=== PATIENT | male | born 1975 | race Caucasian/White ===

== ENCOUNTER 2017-12-21 11:50 | Inpatient (IN) | payer MEDICAID ==
[~2017-12-21] VITALS: Ht 180.3 cm; Wt 86.6 kg
[2017-12-21] VITALS (20 sets, daily range): BP systolic 88–151; BP diastolic 46–105; BMI 24.9
--- NOTE | ~2017-12-21 | EC ---
PATIENT:MITCHELL LANGFORD DATE OF SERVICE: 12/21/17 SEX: M MEDICAL RECORD: [id number] DATE OF : 75 LOCATION:[facility] D.230 AGE OF PATIENT: 42 ADMISSION DATE: 12/21/17 REFERRING PHYSICIAN: INTERPRETING PHYSICIAN: FAROOQ HARMON MD ECHOCARDIOGRAM REPORT ECHO CHARGES 4 ECHO COMPLETE Date: 12/23/17 CLINICAL DIAGNOSIS: CHF ECHOCARDIOGRAPHIC MEASUREMENTS (adult normal given) AC root (d.<3.7cm) 3.5 cm LV Septum d (<1.2 cm> 1.0 cm Valve Excursion 2.0 cm LV Septum (systole) 1.4 cm Left Atria (s.<4.0cm> 3.3 cm LVPW d(<1.2cm) 1.2 cm RV (d.<2.3cm) 2.7 cm LVPW (sytole) 1.8 cm LV diastole(<5.6CM) 5.2 cm MV E-F(>70mm/sec) cm LV systole 2.7 cm LVOT Diameter 2.1 cm MV exc.(>10mm) cm Est.ejection fraction (50-75%) % DOPPLER: LVIT cm/sec A 66.0 cm/sec E 87.0 cm/sec LA cm/sec RVSP 27.0 mmHg LVOT 138 cm/sec AOP1/2T m/s Asc. Ao 140 cm/sec RVOT 76.0 cm/sec RA cm/sec PA 108 cm/sec AV Gradient Peak 7.9 mmHg AV Mean 3.8 mmHg AV Area 2.8 cm MV Gradient Peak 5.1 mmHg MV Mean 1.9 mmHg MV Area cm COMMENTS: Hand Button Splitter: 1 SERENE JONES Tool Design Engineer: 2 Dr. Molina TAPE# PACS Pericardial Effusion N DATE OF SERVICE: FINDINGS: 1. Left ventricular chamber size is within normal limits. Left ventricular systolic function is normal. Overall ejection fraction is estimated at 65%. 2. Left atrium, right atrium, and right ventricle chamber sizes are within normal limit. 3. Valvular structures have normal structure and motion. 4. Doppler interrogation reveals only trace mitral regurgitation and mild tricuspid regurgitation. No other valvular insufficiency or stenosis. ECHOCARDIOGRAM REPORT [id number] MITCHELL LANGFORD Pulmonary systolic pressure is estimated at 27 mmHg. 5. No evidence of pericardial effusion or left ventricular thrombus. TRANSINT:[id number] Voice Confirmation ID: [id number] DOCUMENT ID: [id number] FAROOQ HARMON MD at 1823 CC: [id number] DICTATION DATE: 12/23/17 1633 SENIOR NATIONAL ACCOUNT MANAGER: 12/23/17 1708 ADM IN [facility] [address] [place] [address]
--- NOTE | ~2017-12-21 | CN ---
PATIENT NAME:MITCHELL PICKERING MEDICAL RECORD: [id number] : 75 LOCATION:D[facility]2204 ADMIT DATE: 12/21/17 ACCOUNT: [id number] CONSULTING PHYSICIAN: CHRISSY HUMMEL MD REFERRING PHYSICIAN: KATJA DAWN DO DATE OF CONSULTATION: 12/21/2017 CONSULT REQUESTING PHYSICIAN: Katja Dawn DO REASON FOR CONSULTATION: Status post pulmonary arrest, mechanical ventilation. HISTORY OF PRESENT ILLNESS: Mr. Pickering is a 42-year-old prisoner. Now, he is orally intubated, unresponsive. The history was taken mainly by reviewing the patient's note and talking to Dr. Dawn and talking to the ER doctor. The patient was [facility] the field at the [facility]. The patient came to the nursing station at the [facility] that he is not breathing and he collapsed and code blue was called and the patient was intubated and resuscitated and brought into the ER. On arrival to the people, the patient was severely dyspneic and he has a peak airway pressure in the 70s and 80s, and he was bluish discoloration. PAST MEDICAL HISTORY: Significant for, 1. Asthma, COPD. 2. Seizure disorder. 3. Depression. 4. Chronic liver disease. The etiology is not clear. 5. Hypertension. MEDICATIONS: On [employer] is reviewed. He is on Xopenex and Advair inhaler at the [facility]. He is also on Dilantin and some prednisone. PERSONAL AND SOCIAL HISTORY: The patient is a prisoner. The detail is not obtainable. FAMILY HISTORY: Not obtainable. PHYSICAL EXAMINATION: GENERAL: Now, the patient is orally intubated. He is in respiratory distress and on mechanical ventilation. He is on assist control, tidal volume of 600, PEEP of 5, on 40% oxygen. His peak airway pressure was up to 90. HEENT: Conjunctivae are pink. Sclerae are not icteric. The pupils are 3-4 mm. NECK: The neck is supple, no JVD. CHEST: The chest excursion is minimal. There are prolonged expiration with wheezing. There is subcutaneous emphysema. HEART: Rhythm regular, normal sound, no murmur. ABDOMEN: The abdomen is soft, bowel sounds present. No hepatosplenomegaly. RECTAL: Deferred. EXTREMITIES: No cyanosis, no clubbing, no pedal edema. CENTRAL NERVOUS SYSTEM: The patient is unresponsive, does not respond to verbal stimuli. LABORATORY DATA: CBC: The WBC is 28.2, hemoglobin is 16.4, hematocrit 46.3, the platelet count is 352. Chemistry: Sodium 141, potassium 4.4, BUN is 11, creatinine 1.1. Lactic acid is 2.2. Total bilirubin is 0.24. AST 71, ALT is 64, alkaline phosphatase 136. ABG initially, the pH was 7.05, pCO2 was 105.9, pO2 is 567, bicarb is 29.8. CONSULT REPORT [id number] MITCHELL PICKERING IMAGING: CT of the head: There is no acute intracranial finding. CTA of the chest: There is no pulmonary embolism. There are patchy airspace disease in the lung bases. Trace pericardial effusion, ectatic ascending aorta. IMPRESSION: 1. Acute hypercapnic respiratory failure. 2. Respiratory arrest. 3. Respiratory acidosis secondary to #2. 4. Acute exacerbation of asthma, chronic obstructive pulmonary disease. 5. Acute mental status changes, rule out anoxic encephalopathy. 6. Leukocytosis. 7. Seizure disorder. 8. Mildly elevated LFTs. RECOMMENDATION: 1. Continue the mechanical ventilation, change it to SIMV and adjust the setting. Keep the peak airway pressure below 40. 2. Start on albuterol/ipratropium nebulizer. Start on Brovana and budesonide nebulizer. Start methylprednisolone IV. 3. Start empiric Zosyn. 4. Follow up labs and chest radiograph in the morning. 5. DVT and stress GI ulcer prevention. Discussed in length with Dr. Dawn as well as RN/RT. The critical care time is 50 minutes. If the patient is not waking up, we will repeat the CT scan of the head. TRANSINT:[id number] Voice Confirmation ID: [id number] DOCUMENT ID: [id number] CHRISSY HUMMEL MD at 1301 CC: [id number] DICTATION DATE: 12/21/171855 SUPERVISOR BEAM DEPARTMENT: 12/21/172101 DIS IN 12/30/17 [place] [address]
[2017-12-21] MEDS ORDERED: ADVAIR HFA 230-12 GM INH (11:58)
[2017-12-21] MEDS ORDERED: XOPENEX HFA15 GM INH (11:58)
[2017-12-21] MEDS ORDERED: PAXIL40 MG PO (11:59)
[2017-12-21] MEDS ORDERED: STERAPRED DS 1010 MG PO (11:59)
[2017-12-21] MEDS ORDERED: DILANTIN50 MG PO (11:59)
[2017-12-21] MEDS ORDERED: MUCINEX DM ER1 EAC1 PO (12:00)
[2017-12-21] MEDS ORDERED: RANITIDINE HCL150 M1 PO (12:00)
[2017-12-21 12:16] LABS: HEMATOCRIT 46.3 % (42.0-54.0); HEMOGLOBIN 16.4 g/dL (13.5-17.5); MCH 34.8 pg (26.0-34.0); MCHC 35.4 g/dL (31.0-37.0); MCV 98.3 fL (80.0-100.0); MEAN PLATELET VOLUME 10.1 fL (7.4-10.4); PLATELET COUNT 352 10x3/uL (130-400); RBC 4.71 10x6/uL (4.20-6.10); RDW 13.2 % (11.5-14.5); WBC 28.2 10x3/uL (4.8-10.8)
[2017-12-21 12:27] LABS: ALBUMIN 3.3 g/dL (3.4-5.0); ALKALINE PHOSPHATASE 136 U/L (46-116); ALT (SGPT) 64 U/L (10-68); BILIRUBIN - TOTAL 0.24 mg/dL (0.2-1.3); CALC OSMOLALITY 280 mosm/kg (275-300); CARBON DIOXIDE 25.5 mmol/L (21.0-32.0); CHLORIDE - SERUM 105 mmol/L (98-107); CREATININE - SERUM 1.1 mg/dL (0.6-1.3); GLUCOSE 125 mg/dL (74-106); POTASSIUM - SERUM 4.4 mmol/L (3.5-5.1); PROTEIN - SERUM 6.9 g/dL (6.4-8.2); SODIUM 141 mmol/L (136-145); UREA NITROGEN 11 mg/dL (7-18); eGFR NON AFRICAN AMERICAN 78 mL/min (90-120)
[2017-12-21 12:37] LABS: CKMB 2.6 U/L (0.0-3.6); CREATINE KINASE 209 UL (21-232); TROPONIN-I 0.043 ng/mL (0.000-0.060)
[2017-12-21 12:40] LABS: EOSINOPHILS 1 % (0-7); LYMPHOCYTES 11 % (15-50); MONOCYTES 3 % (2-11); NEUTROPHILS 83 % (40-80)
[2017-12-21 12:41] LABS: PLATELET ESTIMATE INCREASED; SMUDGE CELLS 1+
[2017-12-21 12:42] LABS: PLATELET MORPHOLOGY GIANT PLTS PRESENT
[2017-12-21 13:02] LABS: UDS - AMPHET NEGATIVE QUAL (NEGATIVE); UDS - BARB NEGATIVE QUAL (NEGATIVE); UDS - BENZO POSITIVE QUAL (NEGATIVE); UDS - COCAINE NEGATIVE QUAL (NEGATIVE); UDS - OPIATE NEGATIVE QUAL (NEGATIVE); UDS - PCP NEGATIVE QUAL (NEGATIVE); UDS - THC NEGATIVE QUAL (NEGATIVE)
[2017-12-21 13:09] LABS: APPEARANCE HAZY (CLEAR); COLOR STRAW (YELLOW)
[2017-12-21 13:10] LABS: BILIRUBIN NEGATIVE (NEGATIVE); EPITHELIAL CELLS 0-5 /hpf (0-5); GLUCOSE NEGATIVE (NEGATIVE); KETONE NEGATIVE (NEGATIVE); NITRITE NEGATIVE (NEGATIVE); PROTEIN 1+ mg/dL (NEGATIVE); UROBILINOGEN NORMAL (NORMAL)
[2017-12-21 13:11] LABS: AMORPHOUS SEDIMENT <1+ /lpf (NONE SEEN); BACTERIA FEW /hpf (NONE SEEN); MUCUS <1+ /lpf (NONE SEEN)
[2017-12-22] VITALS (25 sets, daily range): BP systolic 83–105; BP diastolic 52–65
[2017-12-22 04:45] LABS: BASOPHILS 0 % (0-2); EOSINOPHILS 0 % (0-7); HEMATOCRIT 39.3 % (42.0-54.0); HEMOGLOBIN 13.9 g/dL (13.5-17.5); IMMATURE GRANULOCYTES 0.3 % (0-5); MCHC 35.4 g/dL (31.0-37.0); MCV 96.1 fL (80.0-100.0); MEAN PLATELET VOLUME 9.9 fL (7.4-10.4); MONOCYTES 9.6 % (2-11); NEUTROPHILS 84.1 % (40-80); PLATELET COUNT 279 10x3/uL (130-400); RBC 4.09 10x6/uL (4.20-6.10); RDW 13.1 % (11.5-14.5); WBC 22.6 10x3/uL (4.8-10.8)
[2017-12-22 05:03] LABS: ALBUMIN 2.6 g/dL (3.4-5.0); ALKALINE PHOSPHATASE 62 U/L (46-116); ALT (SGPT) 52 U/L (10-68); BILIRUBIN - TOTAL 0.48 mg/dL (0.2-1.3); CALC OSMOLALITY 286 mosm/kg (275-300); CARBON DIOXIDE 25.7 mmol/L (21.0-32.0); CHLORIDE - SERUM 109 mmol/L (98-107); CREATININE - SERUM 1.1 mg/dL (0.6-1.3); GLUCOSE 126 mg/dL (74-106); POTASSIUM - SERUM 4.1 mmol/L (3.5-5.1); PROTEIN - SERUM 5.6 g/dL (6.4-8.2); SODIUM 143 mmol/L (136-145); UREA NITROGEN 12 mg/dL (7-18); eGFR NON AFRICAN AMERICAN 78 mL/min (90-120)
[2017-12-23] VITALS (26 sets, daily range): BP systolic 86–111; BP diastolic 53–75; Ht 180.3 cm; Wt 86.6 kg
[2017-12-23 05:23] LABS: BASOPHILS 0 % (0-2); EOSINOPHILS 0 % (0-7); HEMATOCRIT 37.5 % (42.0-54.0); HEMOGLOBIN 12.8 g/dL (13.5-17.5); IMMATURE GRANULOCYTES 0.5 % (0-5); LYMPHOCYTES 4.3 % (15-50); MCH 33.4 pg (26.0-34.0); MCHC 34.1 g/dL (31.0-37.0); MCV 97.9 fL (80.0-100.0); MEAN PLATELET VOLUME 9.9 fL (7.4-10.4); MONOCYTES 7.8 % (2-11); NEUTROPHILS 87.4 % (40-80); PLATELET COUNT 276 10x3/uL (130-400); RBC 3.83 10x6/uL (4.20-6.10); RDW 13.6 % (11.5-14.5); WBC 25.9 10x3/uL (4.8-10.8)
[2017-12-23 05:37] LABS: ALBUMIN 2.3 g/dL (3.4-5.0); ALKALINE PHOSPHATASE 57 U/L (46-116); CALC OSMOLALITY 281 mosm/kg (275-300); CALCIUM 7.8 mg/dL (8.5-10.1); CARBON DIOXIDE 29.1 mmol/L (21.0-32.0); CHLORIDE - SERUM 109 mmol/L (98-107); GLUCOSE 131 mg/dL (74-106); POTASSIUM - SERUM 4.1 mmol/L (3.5-5.1); PROTEIN - SERUM 5.3 g/dL (6.4-8.2); SODIUM 141 mmol/L (136-145); UREA NITROGEN 11 mg/dL (7-18)
[2017-12-23 05:41] LABS: ALT (SGPT) 37 U/L (10-68); CREATININE - SERUM 0.8 mg/dL (0.6-1.3); eGFR NON AFRICAN AMERICAN > 90 mL/min (90-120)
[2017-12-24] VITALS (24 sets, daily range): BP systolic 88–124; BP diastolic 57–85
[2017-12-24 05:05] LABS: BASOPHILS 0 % (0-2); EOSINOPHILS 0 % (0-7); HEMATOCRIT 39.1 % (42.0-54.0); HEMOGLOBIN 13.8 g/dL (13.5-17.5); IMMATURE GRANULOCYTES 0.4 % (0-5); MCH 35.2 pg (26.0-34.0); MCHC 35.3 g/dL (31.0-37.0); MCV 99.7 fL (80.0-100.0); MEAN PLATELET VOLUME 9.7 fL (7.4-10.4); MONOCYTES 3.7 % (2-11); NEUTROPHILS 85.9 % (40-80); PLATELET COUNT 292 10x3/uL (130-400); RBC 3.92 10x6/uL (4.20-6.10); RDW 13.9 % (11.5-14.5); WBC 23.1 10x3/uL (4.8-10.8)
[2017-12-24 05:20] LABS: ALBUMIN 2.3 g/dL (3.4-5.0); ALKALINE PHOSPHATASE 47 U/L (46-116); ALT (SGPT) 31 U/L (10-68); BILIRUBIN - TOTAL 0.22 mg/dL (0.2-1.3); CALC OSMOLALITY 291 mosm/kg (275-300); CARBON DIOXIDE 30.2 mmol/L (21.0-32.0); CHLORIDE - SERUM 110 mmol/L (98-107); CREATININE - SERUM 0.7 mg/dL (0.6-1.3); GLUCOSE 121 mg/dL (74-106); MAGNESIUM - SERUM 1.9 mg/dL (1.8-2.4); PHOSPHOROUS 3.4 mg/dL (2.5-4.9); PROTEIN - SERUM 5.2 g/dL (6.4-8.2); SODIUM 146 mmol/L (136-145); UREA NITROGEN 13 mg/dL (7-18); eGFR NON AFRICAN AMERICAN > 90 mL/min (90-120)
[2017-12-25] VITALS (28 sets, daily range): BP systolic 92–115; BP diastolic 53–77
[2017-12-25 03:52] LABS: BASOPHILS 0.1 % (0-2); EOSINOPHILS 0 % (0-7); HEMATOCRIT 39.6 % (42.0-54.0); HEMOGLOBIN 13.4 g/dL (13.5-17.5); IMMATURE GRANULOCYTES 0.5 % (0-5); LYMPHOCYTES 11.2 % (15-50); MCH 33.8 pg (26.0-34.0); MCHC 33.8 g/dL (31.0-37.0); MEAN PLATELET VOLUME 9.9 fL (7.4-10.4); MONOCYTES 15.5 % (2-11); NEUTROPHILS 72.7 % (40-80); PLATELET COUNT 299 10x3/uL (130-400); RBC 3.96 10x6/uL (4.20-6.10); RDW 13.6 % (11.5-14.5); WBC 17.5 10x3/uL (4.8-10.8)
[2017-12-25 04:07] LABS: ALBUMIN 2.2 g/dL (3.4-5.0); ALKALINE PHOSPHATASE 47 U/L (46-116); ALT (SGPT) 31 U/L (10-68); BILIRUBIN - TOTAL 0.29 mg/dL (0.2-1.3); CALCIUM 7.8 mg/dL (8.5-10.1); CHLORIDE - SERUM 110 mmol/L (98-107); CREATININE - SERUM 0.7 mg/dL (0.6-1.3); GLUCOSE 104 mg/dL (74-106); POTASSIUM - SERUM 4.1 mmol/L (3.5-5.1); SODIUM 147 mmol/L (136-145); eGFR NON AFRICAN AMERICAN > 90 mL/min (90-120)
[2017-12-25 04:08] LABS: CALC OSMOLALITY 293 mosm/kg (275-300); UREA NITROGEN 18 mg/dL (7-18)
[2017-12-26] VITALS (22 sets, daily range): BP systolic 92–114; BP diastolic 17–77
[2017-12-26 04:44] LABS: BASOPHILS 0.1 % (0-2); EOSINOPHILS 0.1 % (0-7); HEMATOCRIT 40.7 % (42.0-54.0); HEMOGLOBIN 13.4 g/dL (13.5-17.5); IMMATURE GRANULOCYTES 0.9 % (0-5); LYMPHOCYTES 13.2 % (15-50); MCH 33.7 pg (26.0-34.0); MCHC 32.9 g/dL (31.0-37.0); MCV 102.3 fL (80.0-100.0); MEAN PLATELET VOLUME 9.8 fL (7.4-10.4); MONOCYTES 17.7 % (2-11); PLATELET COUNT 302 10x3/uL (130-400); RBC 3.98 10x6/uL (4.20-6.10); RDW 13.6 % (11.5-14.5); WBC 15.1 10x3/uL (4.8-10.8)
[2017-12-26 05:09] LABS: ALBUMIN 2.3 g/dL (3.4-5.0); ALKALINE PHOSPHATASE 53 U/L (46-116); ALT (SGPT) 29 U/L (10-68); BILIRUBIN - TOTAL 0.36 mg/dL (0.2-1.3); CALC OSMOLALITY 290 mosm/kg (275-300); CALCIUM 7.6 mg/dL (8.5-10.1); CHLORIDE - SERUM 111 mmol/L (98-107); CREATININE - SERUM 0.7 mg/dL (0.6-1.3); GLUCOSE 95 mg/dL (74-106); POTASSIUM - SERUM 4.5 mmol/L (3.5-5.1); PROTEIN - SERUM 5.2 g/dL (6.4-8.2); SODIUM 145 mmol/L (136-145); UREA NITROGEN 18 mg/dL (7-18); eGFR NON AFRICAN AMERICAN > 90 mL/min (90-120)
[2017-12-27] VITALS (24 sets, daily range): BP systolic 96–152; BP diastolic 57–102
[2017-12-27 04:49] LABS: BASOPHILS 0.1 % (0-2); EOSINOPHILS 0.3 % (0-7); HEMATOCRIT 39.8 % (42.0-54.0); HEMOGLOBIN 13.2 g/dL (13.5-17.5); IMMATURE GRANULOCYTES 1.3 % (0-5); LYMPHOCYTES 11.4 % (15-50); MCH 33.5 pg (26.0-34.0); MCHC 33.2 g/dL (31.0-37.0); MEAN PLATELET VOLUME 9.9 fL (7.4-10.4); MONOCYTES 16.3 % (2-11); NEUTROPHILS 70.6 % (40-80); PLATELET COUNT 280 10x3/uL (130-400); RBC 3.94 10x6/uL (4.20-6.10)
[2017-12-27 05:07] LABS: ALBUMIN 2.2 g/dL (3.4-5.0); ALKALINE PHOSPHATASE 50 U/L (46-116); ALT (SGPT) 22 U/L (10-68); BILIRUBIN - TOTAL 0.46 mg/dL (0.2-1.3); CALC OSMOLALITY 283 mosm/kg (275-300); CALCIUM 7.8 mg/dL (8.5-10.1); CARBON DIOXIDE 32.3 mmol/L (21.0-32.0); CHLORIDE - SERUM 108 mmol/L (98-107); CREATININE - SERUM 0.8 mg/dL (0.6-1.3); GLUCOSE 108 mg/dL (74-106); POTASSIUM - SERUM 4.1 mmol/L (3.5-5.1); PROTEIN - SERUM 5.1 g/dL (6.4-8.2); SODIUM 141 mmol/L (136-145); UREA NITROGEN 18 mg/dL (7-18); eGFR NON AFRICAN AMERICAN > 90 mL/min (90-120)
[2017-12-28] VITALS (18 sets, daily range): BP systolic 122–140; BP diastolic 84–94
[2017-12-28 05:19] LABS: BASOPHILS 0 % (0-2); EOSINOPHILS 0.3 % (0-7); HEMATOCRIT 42.9 % (42.0-54.0); HEMOGLOBIN 14.6 g/dL (13.5-17.5); IMMATURE GRANULOCYTES 1.3 % (0-5); LYMPHOCYTES 10.1 % (15-50); MCH 33.6 pg (26.0-34.0); MCV 98.8 fL (80.0-100.0); MONOCYTES 14.7 % (2-11); NEUTROPHILS 73.6 % (40-80); PLATELET COUNT 355 10x3/uL (130-400); RBC 4.34 10x6/uL (4.20-6.10); RDW 12.5 % (11.5-14.5)
[2017-12-28 05:33] LABS: ALBUMIN 2.4 g/dL (3.4-5.0); ALKALINE PHOSPHATASE 62 U/L (46-116); ALT (SGPT) 27 U/L (10-68); BILIRUBIN - TOTAL 0.78 mg/dL (0.2-1.3); CALC OSMOLALITY 285 mosm/kg (275-300); CALCIUM 7.9 mg/dL (8.5-10.1); CARBON DIOXIDE 31.5 mmol/L (21.0-32.0); CHLORIDE - SERUM 108 mmol/L (98-107); CREATININE - SERUM 0.8 mg/dL (0.6-1.3); GLUCOSE 103 mg/dL (74-106); POTASSIUM - SERUM 3.3 mmol/L (3.5-5.1); PROTEIN - SERUM 5.8 g/dL (6.4-8.2); SODIUM 143 mmol/L (136-145); UREA NITROGEN 14 mg/dL (7-18); eGFR NON AFRICAN AMERICAN > 90 mL/min (90-120)
[2017-12-29 03:00] VITALS: BP 116/99
[2017-12-29 03:06] LABS: ACID FAST SMEAR Negative (()); AFB SPECIMEN PROCESSING Concentration (())
[2017-12-29 04:42] LABS: BASOPHILS 0 % (0-2); EOSINOPHILS 0.6 % (0-7); HEMATOCRIT 43.2 % (42.0-54.0); HEMOGLOBIN 15.2 g/dL (13.5-17.5); IMMATURE GRANULOCYTES 0.8 % (0-5); LYMPHOCYTES 11.1 % (15-50); MCH 34.3 pg (26.0-34.0); MCHC 35.2 g/dL (31.0-37.0); MCV 97.5 fL (80.0-100.0); MEAN PLATELET VOLUME 9.8 fL (7.4-10.4); NEUTROPHILS 72.5 % (40-80); PLATELET COUNT 376 10x3/uL (130-400); RBC 4.43 10x6/uL (4.20-6.10); RDW 12.9 % (11.5-14.5); WBC 21.7 10x3/uL (4.8-10.8)
[2017-12-29 04:50] LABS: ALBUMIN 2.5 g/dL (3.4-5.0); ALKALINE PHOSPHATASE 72 U/L (46-116); ALT (SGPT) 28 U/L (10-68); CALC OSMOLALITY 281 mosm/kg (275-300); CALCIUM 7.8 mg/dL (8.5-10.1); CARBON DIOXIDE 28.7 mmol/L (21.0-32.0); CHLORIDE - SERUM 108 mmol/L (98-107); CREATININE - SERUM 0.7 mg/dL (0.6-1.3); GLUCOSE 97 mg/dL (74-106); POTASSIUM - SERUM 3.4 mmol/L (3.5-5.1); PROTEIN - SERUM 6.1 g/dL (6.4-8.2); SODIUM 142 mmol/L (136-145); eGFR NON AFRICAN AMERICAN > 90 mL/min (90-120)
[2017-12-29 04:53] LABS: UREA NITROGEN 9 mg/dL (7-18)
[2017-12-29 11:00] VITALS: BP 109/76
[2017-12-29 15:00] VITALS: BP 116/81
[2017-12-29 19:00] VITALS: BP 109/74
[2017-12-30 04:00] VITALS: BP 109/82
[2017-12-30 05:04] LABS: BASOPHILS 0 % (0-2); EOSINOPHILS 1.8 % (0-7); HEMOGLOBIN 15.6 g/dL (13.5-17.5); IMMATURE GRANULOCYTES 0.4 % (0-5); LYMPHOCYTES 15.5 % (15-50); MCH 34.5 pg (26.0-34.0); MCHC 35.5 g/dL (31.0-37.0); MCV 97.3 fL (80.0-100.0); MEAN PLATELET VOLUME 9.8 fL (7.4-10.4); MONOCYTES 18.2 % (2-11); NEUTROPHILS 64.1 % (40-80); PLATELET COUNT 373 10x3/uL (130-400); RBC 4.52 10x6/uL (4.20-6.10); RDW 13.1 % (11.5-14.5); WBC 20.5 10x3/uL (4.8-10.8)
[2017-12-30 05:16] LABS: ALBUMIN 2.8 g/dL (3.4-5.0); ALKALINE PHOSPHATASE 79 U/L (46-116); ALT (SGPT) 33 U/L (10-68); BILIRUBIN - TOTAL 0.56 mg/dL (0.2-1.3); CALCIUM 8.2 mg/dL (8.5-10.1); CARBON DIOXIDE 29.2 mmol/L (21.0-32.0); CHLORIDE - SERUM 107 mmol/L (98-107); CREATININE - SERUM 0.8 mg/dL (0.6-1.3); GLUCOSE 98 mg/dL (74-106); POTASSIUM - SERUM 3.8 mmol/L (3.5-5.1); PROTEIN - SERUM 6.3 g/dL (6.4-8.2); SODIUM 142 mmol/L (136-145); eGFR NON AFRICAN AMERICAN > 90 mL/min (90-120)
[2017-12-30 05:17] LABS: CALC OSMOLALITY 282 mosm/kg (275-300); UREA NITROGEN 12 mg/dL (7-18)
[2017-12-30 08:47] VITALS: BP 106/69
[2017-12-30 11:14] LABS: FUNGUS STAIN Final report (())
[2017-12-30 14:09] VITALS: BP 96/52
[2017-12-30] MEDS ORDERED: ROBITUSSIN DM 110 ML PO (14:41)
[2017-12-30] MEDS ORDERED: SINGULAIR10 MG NG (14:41)
[2017-12-30] MEDS ORDERED: PULMICORT0.5 MG/21 UPD (14:42)
[2017-12-30] MEDS ORDERED: CHRONULAC30 ML PO (14:43)
[2017-12-30] MEDS ORDERED: CARAFATE1 G PO (14:43)
[2017-12-30] MEDS ORDERED: LIDODERM 5 %1 PATCH TRANSDERM (14:43)
[2017-12-30] MEDS ORDERED: IPRAT-ALBUT 0.5-3 ML IH (14:44)
[2017-12-30] MEDS ORDERED: NORCO-10 PO (14:44)
[2017-12-30] MEDS ORDERED: FLORAJEN3 CAPS460 MG PO (14:44)
[2017-12-30] MEDS ORDERED: BROVANA15 MCG/2 M INH (14:44)
[2017-12-30] MEDS ORDERED: PREDNISONE10 MG PO (14:45)
[2017-12-31 12:35] LABS: HEPATITIS C ANTIBODY >11.0 High
[2018-01-03 17:13] LABS: FUNGUS CULTURE RESULT 1 Candida kefyr (()); FUNGUS STAIN RESULT 1 Yeast observed (())
[2018-01-13 13:16] LABS: AMPHOTERICIN B MIC 1.0 ug/mL (())
[2018-01-23 11:20] LABS: FUNGUS MYCOLOGY CULTURE Final report (())
== END 2017-12-30 17:50 | DRG 870 ==
LOC: D.ER 11:50 → D.ICU 14:45 → D.MS 12-29 21:10
PROVIDERS: Family Medicine; Internal Medicine Pulmonary Disease
PROC: 5A1955Z Respiratory Ventilation, Greater than 96 Consecutive Hours (ICD-10-PCS; principal; 2017-12-21)
PROC: 0BH17EZ Insertion of Endotracheal Airway into Trachea, Via Natural or Artificial Opening (ICD-10-PCS; 2017-12-21)
PROC: 05HM33Z Insertion of Infusion Device into Right Internal Jugular Vein, Percutaneous Approach (ICD-10-PCS; 2017-12-21)
PROC: 0B998ZZ Drainage of Lingula Bronchus, Via Natural or Artificial Opening Endoscopic (ICD-10-PCS; 2017-12-27)
PROC: 0B948ZZ Drainage of Right Upper Lobe Bronchus, Via Natural or Artificial Opening Endoscopic (ICD-10-PCS; 2017-12-27)
PROC: 0B988ZZ Drainage of Left Upper Lobe Bronchus, Via Natural or Artificial Opening Endoscopic (ICD-10-PCS; 2017-12-27)
PROC: 0B918ZZ Drainage of Trachea, Via Natural or Artificial Opening Endoscopic (ICD-10-PCS; 2017-12-27)
PROC: 0B938ZZ Drainage of Right Main Bronchus, Via Natural or Artificial Opening Endoscopic (ICD-10-PCS; 2017-12-27)
PROC: 0B978ZZ Drainage of Left Main Bronchus, Via Natural or Artificial Opening Endoscopic (ICD-10-PCS; 2017-12-27)
PROC: 0B968ZZ Drainage of Right Lower Lobe Bronchus, Via Natural or Artificial Opening Endoscopic (ICD-10-PCS; 2017-12-27)
PROC: 0B9B8ZZ Drainage of Left Lower Lobe Bronchus, Via Natural or Artificial Opening Endoscopic (ICD-10-PCS; 2017-12-27)
DX: A41.9 Sepsis, unspecified organism (principal); I46.9 Cardiac arrest, cause unspecified; J96.02 Acute respiratory failure with hypercapnia; J96.01 Acute respiratory failure with hypoxia; J18.9 Pneumonia, unspecified organism; E87.2 Acidosis; J44.1 Chronic obstructive pulmonary disease with (acute) exacerbation; S22.42XA Multiple fractures of ribs, left side, initial encounter for closed fracture; K92.2 Gastrointestinal hemorrhage, unspecified; I10 Essential (primary) hypertension; G40.909 Epilepsy, unspecified, not intractable, without status epilepticus; E88.09 Other disorders of plasma-protein metabolism, not elsewhere classified; F32.9 Major depressive disorder, single episode, unspecified; D64.9 Anemia, unspecified; R41.82 Altered mental status, unspecified; K72.90 Hepatic failure, unspecified without coma; K74.60 Unspecified cirrhosis of liver